=== PATIENT | male | born 1995 | race Two or more races ===

== ENCOUNTER 2018-07-21 10:24 | Emergency (ER) | payer OTHER ==
[~2018-07-21] VITALS: Ht 177.8 cm; Wt 100.0 kg
[2018-07-21] MEDS ORDERED: PROZ40CA PO (10:46)
[2018-07-21] MEDS ORDERED: HYDR50TA70 PO (10:46)
--- NOTE | 2018-07-21 11:58 | REP ---
RIGHT THIRD DIGIT: Four views of the right third digit are performed. There is soft tissue swelling distally of the third digit. No fracture, dislocation, or intrinsic bone disease is seen. No radiopaque foreign body is seen in the soft tissues. Electronically Signed by Allan Parks MD 07/21/2018 03:20 P
[2018-07-21] MEDS ORDERED: CLEO300C2 PO (12:03)
[2018-07-21 12:09] VITALS: BP 141/85
== END 2018-07-21 12:10 | disposition home or self-care (01) ==
LOC: M ED 10:24
DX: L03.011 Cellulitis of right finger (principal); I10 Essential (primary) hypertension; Z79.899 Other long term (current) drug therapy

== ENCOUNTER 2019-01-12 05:51 | Emergency (ER) | payer OTHER ==
[~2019-01-12] VITALS: Ht 177.8 cm; Wt 100.0 kg
[~2019-01-12 05:51] MED LIST: CLEO300C2 PO; HYDR50TA70 PO; PROZ40CA PO
[2019-01-12 06:56] LABS: BASO % 0.5 % (0.0-1.0); EOS # 0.2 10^3/uL (0.0-0.5); EOS % 3.7 % (0.0-3.0); HEMATOCRIT 44.6 % (42.0-52.0); HEMOGLOBIN 14.9 g/dl (13.5-17.5); LYMPH # 2.1 10^3/uL (1.5-5.0); LYMPH % 34.8 % (24.0-44.0); MEAN CORPUSCULAR HEMOGLOBIN 29.4 pg (27.0-33.0); MEAN CORPUSCULAR HGB CONC 33.4 g/dl (32.0-36.5); MEAN CORPUSCULAR VOLUME 88.1 fl (80.0-96.0); MONO # 0.5 10^3/uL (0.0-0.8); MONO % 8.3 % (0.0-5.0); NEUTROPHILS # 3.1 10^3/uL (1.5-8.5); NEUTROPHILS % 52.2 % (36.0-66.0); PLATELET COUNT, AUTOMATED 222 10^3/uL (150-450); RED BLOOD COUNT 5.06 10^6/uL (4.30-6.10)
[2019-01-12] MEDS ORDERED: METOCLOPRAMIDE INJ 10MG/2ML VIAL (J2765) IV ONE (07:15)
[2019-01-12] MEDS ORDERED: KETOROLAC 30 MG/ML VIAL (J1885) IV ONE (07:15)
[2019-01-12] MEDS ORDERED: NS 1,000 ML IV ONE (07:15)
[2019-01-12 07:24] LABS: ALBUMIN 3.7 GM/DL (3.2-5.2); ALT/SGPT 22 U/L (12-78); BILIRUBIN,DIRECT 0.1 MG/DL (0.0-0.2); BILIRUBIN,TOTAL 0.3 MG/DL (0.2-1.0); BLOOD UREA NITROGEN 14 MG/DL (7-18); CALCIUM LEVEL 8.4 MG/DL (8.5-10.1); CARBON DIOXIDE LEVEL 23 MEQ/L (21-32); CHLORIDE LEVEL 111 MEQ/L (98-107); CK-MB VALUE MASS < 1.0 NG/ML (<3.6); CPK CREATINE PHOSPHOKINASE 110 U/L (39-308); CREATININE FOR GFR 0.94 MG/DL (0.70-1.30); FREE T4 1.03 NG/DL (0.76-1.46); GLOMERULAR FILTRATION RATE > 60.0 (>60); GLUCOSE, FASTING 87 MG/DL (70-100); MB/CK RELATIVE INDEX 0.91 (< OR =4); POTASSIUM SERUM 4.2 MEQ/L (3.5-5.1); SODIUM LEVEL 142 MEQ/L (136-145); TOTAL PROTEIN 6.9 GM/DL (6.4-8.2); TROPONIN I < 0.02 NG/ML (< 0.10)
[2019-01-12 08:50] VITALS: BP 126/70
--- NOTE | 2019-01-12 10:36 | REP ---
Chest x-ray: Two views. History: Chest pain . Comparison study: No comparison . Findings: The lungs are well inflated and free of infiltrate. The pleural angles are sharp. The heart size is normal. Pulmonary vasculature is not increased. No significant bony abnormality is seen. Impression: Negative chest x-ray. Electronically Signed by Medhat Dennis MD 01/12/2019 07:58 A
--- NOTE | 2019-01-12 20:42 | ECGEPIP ---
[facility] - ED Test Date: 2019-01-12 Pat Name: RAY ESCOBAR Department: Room: - Gender: Male [employer]ospatial Image [employer]st: : 1995 Requested By: RAY Alexis Order Number: [id number] Reading MD: Kaylynn Ross Measurements Intervals [place] Rate: 87 P: 53 SC: 136 QRS: 89 QRSD: 88 T: 26 QT: 340 QTc: 411 Interpretive Statements SINUS RHYTHM NO PRIOR Electronically Signed on 01-12-2019 20:42:08 EDT by Kaylynn Ross
== END 2019-01-12 09:13 | disposition home or self-care (01) ==
LOC: M ED 05:51
DX: R19.7 Diarrhea, unspecified (principal); F17.210 Nicotine dependence, cigarettes, uncomplicated; Z82.49 Family history of ischemic heart disease and other diseases of the circulatory system; Z91.018 Allergy to other foods
CPT/HCPCS: 71046; 80048; 80076; 82550; 82553; 84439; 84443; 84484; 85025; 93005; 93041; 94760; 96374; 96375; 99284; J1885; J2765